=== PATIENT | female | born 1990 | race Hispanic/Latino ===

== ENCOUNTER 2021-11-24 21:39 | Emergency (ER) | payer SELFPAY ==
[2021-11-24 22:36] LABS: Bilirubin Neg (Negative); Blood, Urine 250 (Negative); Clarity Mucous (Clear); Glucose, Urine (Dipstick) Normal (Negative); Ketone, Urine Negative (Negative); Leukocyte 500 (Negative); Nitrite Positive (Negative); Protein, Urine (Dipstick) 100 mg/dl (Neg-Trace); Specific Gravity, Urine 1.025 (1.002-1.036); Urobilinogen Normal mg/dL (Less than 2)
[2021-11-24 22:39] LABS: Pregnancy Test - Urine (BHCG) Negative (Negative); Pregu Control Background? CLEAR/WHITE (CLR/WHITE); Pregu Control Bar Appear? YES (CONTROL BAR); Specific Gravity 1.025 (1.002-1.036)
[2021-11-24 22:52] LABS: Bacteria/HPF 4+ HPF (None Seen); Mucous/LPF 2+ LPF (<2+); WBC/HPF Greater than 50 HPF (0-3); Yeast-Budding 2+ HPF (None Seen)
== END 2021-11-24 23:19 | disposition home or self-care (01) ==
LOC: CSHERS 21:39
DX: N39.0 Urinary tract infection, site not specified (principal); F41.1 Generalized anxiety disorder; B37.3 Candidiasis of vulva and vagina; I10 Essential (primary) hypertension
CPT/HCPCS: 81003; 81015; 81025; 87077; 87086; 87186; 99283

== ENCOUNTER 2024-03-23 22:46 | Emergency (ER) | payer SELFPAY ==
[2024-03-23] MEDS ORDERED: Ketorolac Tromethamine 30 MG (1 mL) VIAL ONE (23:28)
== END 2024-03-24 00:04 | disposition home or self-care (01) ==
LOC: CSHERS 22:46
DX: M25.461 Effusion, right knee (principal); I10 Essential (primary) hypertension; Z79.899 Other long term (current) drug therapy
CPT/HCPCS: 96372; 99283; J1885

== ENCOUNTER 2024-10-13 09:21 | Emergency (ER) | payer OTHER ==
[2024-10-13] MEDS ORDERED: Ibuprofen 200 MG TAB ONE (10:28)
[2024-10-13] MEDS ORDERED: Lidocaine 4% Patch ONE (10:28)
[2024-10-13] MEDS ORDERED: Methocarbamol 500 MG TAB ONE (10:28)
== END 2024-10-13 10:41 | disposition home or self-care (01) ==
LOC: CSHERS 09:21
DX: S13.4XXA Sprain of ligaments of cervical spine, initial encounter (principal); S20.312A Abrasion of left front wall of thorax, initial encounter; V43.52XA Car driver injured in collision with other type car in traffic accident, initial encounter; W22.11XA Striking against or struck by driver side automobile airbag, initial encounter; Y93.89 Activity, other specified
CPT/HCPCS: 99283